=== PATIENT | male | born 2000 | race Caucasian/White ===

== ENCOUNTER → 2021-02-03 | Outpatient (CLI) | payer OTHER ==
--- NOTE | 2021-02-03 14:08 | REP ---
INDICATION: DYSPNEA, UNSPECIFIED. COMPARISON: None. FINDINGS: The superior mediastinal structures are midline. The cardiac silhouette is unremarkable in size, shape, and position. The diaphragmatic surfaces of the lungs are regular, and the costophrenic angles are clear. The pulmonary londono are clear. The imaged osseous structures are intact. IMPRESSION: There is no acute cardiopulmonary disease. <Electronically signed by Luis A Ayala > 02/03/21 [id number]
== END ==
LOC: M RAD 13:45
PROVIDERS: ATTEND Physician Assistant
DX: R06.00 Dyspnea, unspecified (principal)

== ENCOUNTER → 2021-03-13 | Outpatient (CLI) | payer OTHER ==
[~2021-03-13] MED LIST: METHACHOLINE KIT (J7674) INH ONE
--- NOTE | 2021-03-13 14:55 | PFTRPT ---
Site: [facility], [address] [place], [address] ID: [id number] Name: TACOS DIALLO Visit Date: 03/13/2021 Second ID: [id number] Referring Doctor: LISSETT Vasquez, Jagruti Kaur Reviewing Doctor: Antonio Rossi MD Solution Advisor: Nano BANKS, JAVY Age: 20 : 2000 Sex: Male Race: Height: 72.00 Inches Weight: 160.00 Lbs BSA: 1.94 Order IDs: [id number] Requested Test(s): <RESP-PFT.METH CHAL> Diagnosis: R06.00 of albuterol for post bronchodilator. Review Status: Not Reviewed Pre-Bronch Post-Bronch Pred Actual %Pred Actual %Chng SPIROMETRY FVC (L) 5.93 6.24 105 6.15 -1 FEV1 (L) 4.91 5.18 105 4.95 -4 FEV1/FVC (%) 84 83 98 81 -3 FEF 25% (L/sec) 8.30 10.02 120 9.50 -5 FEF 50% (L/sec) 5.49 5.24 95 4.97 -5 FEF 75% (L/sec) 2.28 3.08 134 2.30 -25 FEF 25-75% (L/sec) 5.09 4.89 96 4.36 -10 FEF Max (L/sec) 10.58 10.67 100 9.81 -8 FIVC (L) 6.04 5.25 -13 FIF 50% (L/sec) 5.72 6.28 109 4.84 -22 FIF Max (L/sec) 6.70 5.49 -18 Expiratory Time (sec) 6.19 6.47 4 Back Extrap Vol (L) 0.17 0.17 Time To FEFmax (sec) 0.096 0.110 14
== END ==
LOC: M CARPUL 14:04
PROVIDERS: ATTEND Physician Assistant
DX: R06.00 Dyspnea, unspecified (principal)
CPT/HCPCS: 94070; J7674